=== PATIENT | female | born 1970 | race Caucasian/White ===

== ENCOUNTER 2022-07-12 10:59 | Outpatient (CLI) | payer BC | END 2022-07-12 11:00 | disposition home or self-care (01) | LOC: CSHMAMMO 10:59 | PROVIDERS: ATTEND Internal Medicine | DX: Z12.31 Encounter for screening mammogram for malignant neoplasm of breast (principal); Z80.3 Family history of malignant neoplasm of breast | CPT/HCPCS: 77063; 77067 ==

== ENCOUNTER 2022-12-10 08:30 | Outpatient (CLI) | payer BC | END 2022-12-10 08:31 | disposition home or self-care (01) | LOC: CSHMAMMO 08:30 | PROVIDERS: ATTEND Obstetrics & Gynecology | DX: N64.4 Mastodynia (principal) | CPT/HCPCS: G0279 ==

== ENCOUNTER 2023-05-24 08:48 | Outpatient (CLI) | payer BC ==
[2023-05-24] MEDS ORDERED: Iopamidol 300 61% 100 ML VIAL FS ONE (10:01)
== END 2023-05-24 08:49 | disposition home or self-care (01) ==
LOC: CSHCT 08:48
PROVIDERS: ATTEND Physician Assistant Medical
DX: R10.30 Lower abdominal pain, unspecified (principal); K59.09 Other constipation
CPT/HCPCS: 74177